=== PATIENT | female | born 1995 | race Caucasian/White ===

== ENCOUNTER 2018-10-10 22:11 | Emergency (ER) | payer OTHER, MEDICAID, SELFPAY ==
[2018-10-10 22:18] VITALS: BP 133/78; PULSE 97; RESP 18; TEMP 37.3; O2SAT 94; BMI 18.0
--- NOTE | 2018-10-10 23:35 | DI.US.S_ITS ---
PROCEDURE: US PERIPH VENOUS LOW EXTREM RT INDICATIONS: PAIN TECHNIQUE: Real-time imaging, as well as color and pulse Doppler interrogation, were performed of the lower extremity deep veins from the inguinal ligament to the popliteal fossa. COMPARISON: None. FINDINGS: The deep veins are normally compressible, and free of intraluminal thrombus. Color and pulse Doppler demonstrate normal phasic intraluminal flow. There is normal augmentation response to distal compression maneuver. IMPRESSION: No deep venous thrombosis identified within the right lower extremity. Dictated by: Greg Lopez [facility] Interpreted: Nader Hernandes MD on 10/11/2018 at 8:13 Approved by: Nader Hernandes M.D. on 10/11/2018 at 14:05
--- NOTE | 2018-10-10 23:45 | ED_ITS ---
HPI - Extremity Problem General Chief complaint: Extremity Problem,Nontraumatic Stated complaint: RIGHT LEG CRAMPING Time Seen by Provider: 10/10/18 23:24 Source: patient and family Mode of arrival: ambulatory Limitations: no limitations History of Present Illness HPI Narrative: Patient states she is on the NuvaRing which is new to her and the last couple of months. She states that about 6 days ago, she began to feel a vague crampy sensation in her right foot. She states that each day this became a little worse and also, has moved up into her calf. She states that now , she has a constant sense of discomfort in her calf which feels sometimes crampy and sometimes just like a dull ache. She has not noticed any swelling or discoloration. She is not having cramping or pain anywhere else. Patient states she pulled the NuvaRing out, because she was worried about blood clots. Patient denies chest pain or shortness of breath. She denies any personal or family history of blood clot that she knows of. She is not a smoker. No recent immobilization or long trips. Related Data Allergies Allergy/AdvReac Type Severity Reaction Status Date / Time No Known Drug Allergies Allergy Verified 10/10/18 22:26 Review of Systems Review of Systems All systems reviewed & are unremarkable except as noted in HPI and below Constitutional Denies chills, Denies fever(s), Denies lethargy and Denies weakness Eyes Denies change in vision, Denies eye discharge, Denies irritation and Denies loss of vision ENT Ears, Nose, Mouth, and Throat: Denies change in voice, Denies neck pain and Denies sore throat Cardiovascular Denies chest pain, Denies irregular heart rhythm, Denies lightheadedness, Denies palpitations, Denies dyspnea, Denies dyspnea on exertion and Denies orthopnea Respiratory Denies cough, Denies dyspnea, Denies dyspnea on exertion and Denies wheezing Gastrointestinal Gastrointestinal: Denies abdominal pain, Denies change in bowel habits, Denies diarrhea, Denies nausea and Denies vomiting Genitourinary Denies hematuria, Denies flank pain, Denies urinary incontinence and Denies urinary urgency Musculoskeletal Denies neck pain Comments: Right leg pain Integumentary/Breasts Denies pruritus, Denies erythema, Denies rash and Denies wounds Neurologic Denies confusion, Denies loss of vision and Denies weakness Psychiatric Denies anxiety, Denies confusion, Denies depression, Denies homicidal ideation and Denies suicidal ideation Endocrine Denies palpitations Hematologic/Lymphatic Denies easy bruising Allergic/Immunologic Denies wheezing [facility] Social History Smoking Status: Never smoker Exam Initial Vital Signs Initial Vital Signs: Vital Signs Temperature 99.1 F 10/10/18 22:18 Pulse Rate 97 H 10/10/18 22:18 Respiratory Rate 18 10/10/18 22:18 Blood Pressure 133/78 10/10/18 22:18 Pulse Oximetry 94 10/10/18 22:18 Const General: cooperative and well developed Nutritional Appearance: well nourished Orientation: alert, awake, oriented x3 and not confused HENMT Head: normocephalic and atraumatic Ears: external ears normal Nose: external nose normal and No nasal discharge Face and sinus: face symmetric and No dry mucous membranes Mouth: oral mucosae normal and moist mucous membranes Teeth and gingiva: dentition normal Eyes General: appearance normal, both eyes and all related structures Eyelids: eyelids normal Conjunctivae: conjunctivae normal Sclera: sclerae normal Pupils: PERRL EOM: EOM intact bilaterally Neck Neck: normal visual inspection, trachea midline, No lymphadenopathy, No midline deformity and No JVD Lymphatic: No lymphedema Chest Chest: normal inspection of the chest Resp Effort & Inspection: normal respiratory effort, able to speak in complete sentences, no respiratory distress and no use of accessory muscles Auscultation: clear to auscultation bilaterally, no rales, no rhonchi and no wheezes Cardio Rate: regular rate Rhythm: regular rhythm Heart Sounds: no click, no gallops, no murmurs and no rubs Pulses: normal peripheral pulses GI Inspection: non-distended Palpation: soft, no hepatosplenomegaly, No guarding, No pulsatile mass and No tender Auscultation: normal bowel sounds Back/Spine/Pelvis Back: No CVA tenderness Cervical Spine: cervical ROM normal and No pain with cervical ROM Thoracic/Lumbar Spine: thoracic and lumbar spine normal to inspection Skin General: no rashes or lesions noted, No jaundice and No petechiae Neuro General: alert, oriented x3, gait normal and no focal motor deficits Speech: speech normal Extrem General: full ROM, no clubbing, cyanosis or edema, no pedal edema and no calf tenderness Psych Appearance: well kempt Mental Status: mental status grossly normal Attitude: cooperative Thought Content: normal and suicidality Judgment: judgment good Course Course Narrative: Patient's overall appeared very well, but given her slowly escalating pain and use of hormonal control, I did go ahead and get an ultrasound of her right lower extremity, to evaluate for possible DVT. This was done, and found to be negative. I discussed with the patient and her family that the findings were negative. We have discussed alternative possible causes of the patient's pain, as well as home management in the usual indications for return. Patient is also advised to follow up with her primary care physician to discuss other potential options for control if this is not working for her. Orders Ordered: ED Orders 10/10/18 23:35 US periph venous low extrem rt Stat Vital Signs - 8 hr 10/10/18 22:18 10/11/18 00:21 Temperature 99.1 F Pulse Rate 97 H 77 Respiratory Rate 18 16 Blood Pressure 133/78 118/67 Pulse Oximetry 94 96 MDM - Extremity (Nontraumatic) Medical Records Attestation: I reviewed the patient's medical records. 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 There is normal compression, augmentation, and Doppler waveform no evidence of deep venous thrombosis. Conclusion: No evidence of right lower extremity DVT. Discharge Plan Departure Patient Disposition: Home Clinical Impression: Acute leg pain Discharge Date/Time: 10/11/18 00:22 Interventions: ED Discharge Assessment Last Done: 10/11/18 00:21 Instructions: DI for Leg Pain Activity Restrictions/Additional Instructions: Your ultrasound is normal--no blood clot! Please follow up with your doctor, as needed, to discuss other control options if the NuvaRing is not working for you.
[2018-10-11 00:21] VITALS: BP 118/67; PULSE 77; RESP 16; O2SAT 96
== END 2018-10-11 00:22 | disposition home or self-care (01) ==
PROVIDERS: Emergency Provider Emergency Medicine
DX: M79.604 Pain in right leg (principal)
CPT/HCPCS: 93971; 99282; 99284

== ENCOUNTER → 2021-10-01 15:46 | Outpatient (CLI) | payer OTHER, SELFPAY ==
--- NOTE | 2021-10-01 | DI.US.S_ITS ---
PROCEDURE: US OB >= 14 WEEKS FETUS INDICATIONS: 20 WEEK ANATOMY SCAN OUTSIDE/PRIOR DATING DATA: Last menstrual period (LMP): Not certain. First dating scan (date and location): [facility]; October 01, 2021 . Estimated date of delivery (LISA) from first dating scan: February 12, 2022 . TECHNIQUE: Real-time scanning was performed of the fetus, with image documentation and biometric measurements. COMPARISON: None. FINDINGS: General: A single living intrauterine gestation is present. Presentation: Cephalic. Placenta: Placental position is fundal , without previa. Amniotic fluid index: 11.4 cm, normal range is 5-24 cm. heart rate: 149 beats per minute. Maternal cervical canal: 5.4 cm long. Normal lower limit is 2.5 cm. biometrics: Biparietal diameter: Unable to obtain Head circumference: Unable to obtain Abdominal circumference: 15.7 cm Femur length: 3.4 cm Estimated gestational age from initial scan: not applicable. Composite gestational age from present scan: 20 weeks, 6 days Measurement variability for biometric dating: +/- 7 days from 14 weeks to 15 weeks 6 days gestation, +/- 10 days from 16 weeks to 21 weeks 6 days gestation, +/- 2 weeks from 22 weeks to 27 weeks 6 days gestation, +/- 3 weeks for 28 weeks gestation or later. weight reference: 4500 g or EFW >90/95% is considered macrosomia or large for gestational age. EFW <10% is small for gestational age. EFW 5% or less is considered intra-uterine growth restriction. Anatomic survey: Neuro: Not well seen. Nuchal skin fold: Not well seen. Spine: No evidence for spina bifida. Heart: Not well seen. Diaphragm: Not well seen. Stomach: Left-sided stomach is present. Kidneys: No hydronephrosis. Normal is less than 5 mm in 2nd trimester, less than 7 mm in 3rd trimester. Cord: Not well seen. Bladder: Normal in size. Extremities: Lower extremities not well seen. Upper extremities appear normal. IMPRESSION: Single live intrauterine gestation as detailed above. Consider follow-up imaging. Dictated by: Rolly Cordero M.D. on 10/02/2021 at 8:55 Approved by: Rolly Cordero M.D. on 10/02/2021 at 9:03
== END ==
PROVIDERS: Referring Provider Nurse Practitioner Obstetrics & Gynecology; Visit Provider Nurse Practitioner Obstetrics & Gynecology
DX: Z34.92 Encounter for supervision of normal pregnancy, unspecified, second trimester (principal); Z3A.20 20 weeks gestation of pregnancy
CPT/HCPCS: 76811

== ENCOUNTER → 2021-10-27 14:07 | Outpatient (CLI) | payer OTHER, SELFPAY ==
--- NOTE | 2021-10-27 | DI.US.S_ITS ---
PROCEDURE: US OB FOLLOW UP INDICATIONS: RE-EVALUATE OUTSIDE/PRIOR DATING DATA: Last menstrual period (LMP): April 09, 2021. LMP-based estimated date of delivery (LISA): January 14, 2022. First dating scan (date): October 01, 2021. Estimated date of delivery (LISA) from first dating scan: February 12, 2022. The calculations are made using the ultrasound LISA of February 12, 2022. TECHNIQUE: Real-time scanning was performed of the fetus, with image documentation. COMPARISON: None. FINDINGS: A single living intrauterine gestation is present. Presentation: Vertex. Placenta: Placental position is fundal, without previa. Amniotic fluid index: 11.5 cm, normal range is 5-24 cm. Single deepest vertical pocket is 5.1 cm. heart rate: 165 beats per minute. Maternal cervical canal: 3.4 cm long. Normal lower limit is 2.5 cm. Calvarium anatomy/facial profile: Normal Four-chamber view/outflow tracts: Normal Placental cord insertion: Normal Lower limbs: Normal Chest/diaphragm: Not well seen IMPRESSION: Single intrauterine gestation as detailed above. Dictated by: Rolly Cordero M.D. on 10/27/2021 at 15:16 Approved by: Rolly Cordero M.D. on 10/27/2021 at 15:21
== END ==
PROVIDERS: Referring Provider Nurse Practitioner Obstetrics & Gynecology; Visit Provider Nurse Practitioner Obstetrics & Gynecology
DX: Z36.2 Encounter for other antenatal screening follow-up (principal); Z3A.24 24 weeks gestation of pregnancy
CPT/HCPCS: 76816